=== PATIENT | female | born 1970 | race Caucasian/White ===

== ENCOUNTER 2019-01-07 12:46 | Emergency (ER) | payer OTHER ==
--- NOTE | 2019-01-07 13:30 | EDM.PDOC ---
<Gary Caballero - Last Filed: 01/07/19 15:20> ED HPI GENERAL MEDICAL PROBLEM - General Chief Complaint: Cardiovascular Problem Stated Complaint: CHEST PAIN AND HIGH BLOOD PRESSURE Time Seen by Provider: 01/07/19 13:30 - Related Data Allergies Allergy/AdvReac Type Severity Reaction Status Date / Time Penicillins Allergy Rash Verified 01/07/19 12:57 Sulfa (Sulfonamide Allergy Rash Verified 01/07/19 12:57 Antibiotics) Home Meds: Home Meds Control. 1 tab PO DAILY 01/07/19 [History] Sertraline [Zoloft] 50 mg PO DAILY 01/07/19 [History] Course - Vital Signs Last Recorded V/S: Last Vital Signs Temp 37.2 C 01/07/19 12:54 Pulse 60 01/07/19 12:54 Resp 16 01/07/19 12:54 BP 145/99 H 01/07/19 12:54 Pulse Ox 98 01/07/19 12:54 - Orders/Labs/Meds Labs: Laboratory Tests 01/07/19 01/07/19 01/07/19 Range/Units 13:56 13:56 13:56 WBC 5.63 (3.98-10.04) K/mm3 RBC 4.69 (3.98-5.22) M/mm3 Hgb 13.7 (11.2-15.7) gm/L Hct 42.3 (34.1-44.9) % MCV 90.2 (79.4-94.8) fl MCH 29.2 (25.6-32.2) pg MCHC 32.4 (32.2-35.5) g/dl RDW Std Deviation 41.6 (36.4-46.3) fL Plt Count 301 (182-369) K/mm3 MPV 10.5 (9.4-12.3) fl Neutrophils % (Manual) 56 (40-60) % Band Neutrophils % 0 (0-10) % Lymphocytes % (Manual) 39 (20-40) % Atypical Lymphs % 0 % Monocytes % (Manual) 4 (2-10) % Eosinophils % (Manual) 1 (0.7-5.8) % Basophils % (Manual) 0 L (0.1-1.2) Platelet Estimate Adequate Plt Morphology Comment Normal RBC Morph Comment Normal D-Dimer, Quantitative < 0.19 L (0.19-0.50) mg/L Sodium 140 (136-145) mEq/L Potassium 4.1 (3.5-5.1) mEq/L Chloride 107 (98-107) mEq/L Carbon Dioxide 27 (21-32) mEq/L Anion Gap 10.1 (5-15) BUN 13 (7-18) mg/dL Creatinine 0.8 (0.55-1.02) mg/dL Est Cr Clr Drug Dosing 82.26 mL/min Estimated GFR (MDRD) > 60 (>60) mL/min BUN/Creatinine Ratio 16.3 (14-18) Glucose 91 (74-106) mg/dL Calcium 9.2 (8.5-10.1) mg/dL Magnesium 2.1 (1.8-2.4) mg/dl Total Bilirubin 0.5 (0.2-1.0) mg/dL AST 21 (15-37) U/L ALT 32 (14-59) U/L Alkaline Phosphatase 44 L (46-116) U/L Troponin I 0.020 (0.00-0.056) ng/mL C-Reactive Protein < 0.2 (<1.0) mg/dL Total Protein 6.8 (6.4-8.2) g/dl Albumin 3.7 (3.4-5.0) g/dl Globulin 3.1 gm/dL Albumin/Globulin Ratio 1.2 (1-2) Free T4 1.03 (0.76-1.46) ng/dL Free T3 pg/mL (2.50-3.90) pg/mL TSH 3rd Generation 2.291 (0.358-3.74) uIU/mL 01/07/19 Range/Units 13:56 WBC (3.98-10.04) K/mm3 RBC (3.98-5.22) M/mm3 Hgb (11.2-15.7) gm/L Hct (34.1-44.9) % MCV (79.4-94.8) fl MCH (25.6-32.2) pg MCHC (32.2-35.5) g/dl RDW Std Deviation (36.4-46.3) fL Plt Count (182-369) K/mm3 MPV (9.4-12.3) fl Neutrophils % (Manual) (40-60) % Band Neutrophils % (0-10) % Lymphocytes % (Manual) (20-40) % Atypical Lymphs % % Monocytes % (Manual) (2-10) % Eosinophils % (Manual) (0.7-5.8) % Basophils % (Manual) (0.1-1.2) Platelet Estimate Plt Morphology Comment RBC Morph Comment D-Dimer, Quantitative (0.19-0.50) mg/L Sodium (136-145) mEq/L Potassium (3.5-5.1) mEq/L Chloride (98-107) mEq/L Carbon Dioxide (21-32) mEq/L Anion Gap (5-15) BUN (7-18) mg/dL Creatinine (0.55-1.02) mg/dL Est Cr Clr Drug Dosing mL/min Estimated GFR (MDRD) (>60) mL/min BUN/Creatinine Ratio (14-18) Glucose (74-106) mg/dL Calcium (8.5-10.1) mg/dL Magnesium (1.8-2.4) mg/dl Total Bilirubin (0.2-1.0) mg/dL AST (15-37) U/L ALT (14-59) U/L Alkaline Phosphatase (46-116) U/L Troponin I (0.00-0.056) ng/mL C-Reactive Protein (<1.0) mg/dL Total Protein (6.4-8.2) g/dl Albumin (3.4-5.0) g/dl Globulin gm/dL Albumin/Globulin Ratio (1-2) Free T4 (0.76-1.46) ng/dL Free T3 pg/mL 3.30 (2.50-3.90) pg/mL TSH 3rd Generation (0.358-3.74) uIU/mL - Re-Assessments/Exams Free Text/Narrative Re-Assessment/Exam: 01/07/19 15:[address] White. Her CBC and CMP look good. Her D-dimer is negative. Her troponin is negative. Her CRP is normal. Her free T4 is negative. Her TSH is normal. I will discharge her home. Departure - Departure Time of Disposition: 15:25 Disposition: Home, Self-Care 01 Condition: Good Clinical Impression: Palpitations, Atypical chest pain Instructions: Nonspecific Chest Pain, [id number], Palpitations, [id number] Referrals: PCP,Not In Area [Primary Care Provider] - Forms: ED Department Discharge Additional Instructions: Follow up with your provider to get referred to cardiology for the palpitations. Check your blood pressure periodically throughout the week. If it is consistently above 140/90 you may need to be treated. Please return if you are worse. <CindyKvng Jody - Last Filed: 01/10/19 11:53> ED HPI GENERAL MEDICAL PROBLEM - General Source of Information: Reports: Patient History Limitations: Reports: No Limitations - History of Present Illness INITIAL COMMENTS - FREE TEXT/NARRATIVE: 48-year-old female presents the ED with concerns about her blood pressure being elevated at home. She states that she gets intermittent palpitations on a daily basis and they've been shown to be PVCs on Holter monitor exam. She states that at one time she had up to 20,000 PVCs in a 24-hour period of time all unifocal. She's been having some central chest pressure discomfort off and on for the last 3 days. Mild nonspecific cough that is nonproductive. Intermittent headaches. Normally she is in good shape and runs marathons. However she broke her great toe in September and has been laid up in this regard. Toes still mending. Denies any sputum production in particular no hemoptysis. She is on oral control pill for regulation of her cycles. Plan is to take her off of this within the next 2-3 months. She is a never smoker. Onset: Other (Intermittent for the last 3 days) Onset Date: 01/05/19 Duration: Day(s):, Intermittent, Waxing/Waning Location: Reports: Head (Headache), Chest (Central chest discomfort. Essential shortness of breath as well) Quality: Reports: Ache, Pressure Severity: Mild Improves with: Reports: None Worsens with: Reports: None Context: Denies: Activity, Exercise, Lifting, Sick Contact, Trauma, Other Associated Symptoms: Reports: Chest Pain, Cough, Headaches, Shortness of Breath. 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: Other (see below) (None.) Headache Pain Score (Numeric/FACES): 2 Past Medical History Cardiovascular History: Reports: Other (See Below) Other Cardiovascular History: PVCs Psychiatric History: Reports: Depression Social & Family History - Tobacco Use Smoking Status *Q: Never Smoker Second Hand Smoke Exposure: No - Caffeine Use Caffeine Use: Reports: Coffee - Recreational Drug Use Recreational Drug Use: No ED ROS GENERAL - Review of Systems Review Of Systems: See Below Constitutional: Denies: Fever, Malaise, Weakness, Fatigue, Decreased Appetite, Weight Loss HEENT: Reports: No Symptoms Respiratory: Reports: Shortness of Breath, Cough. Denies: Wheezing, Pleuritic Chest Pain, Sputum, Hemoptysis, Other Cardiovascular: Reports: Chest Pain, Blood Pressure Problem (Central chest discomfort intermittently. Question whether she has developing hypertension. This is one of the reason she came to the hospital. On the checkups that she's done at home her blood pressure still well within normal range although a few travel above 135 and a few travel about 85 but not greater than 90). Denies: Claudication, Edema, Lightheadedness, Orthopnea Endocrine: Reports: Fatigue GI/Abdominal: Reports: No Symptoms : Reports: No Symptoms Musculoskeletal: Reports: No Symptoms, Other Skin: Reports: No Symptoms (Healing fracture right great toe) Neurological: Reports: No Symptoms Psychiatric: Reports: No Symptoms Hematologic/Lymphatic: Reports: No Symptoms Immunologic: Reports: No Symptoms ED EXAM, GENERAL - Physical Exam Exam: See Below Exam Limited By: No Limitations General Appearance: Alert, WD/WN, No Apparent Distress, Other (Vital signs are normal other than slightly elevated blood pressure 1 4599.) Eye Exam: Bilateral Eye: Normal Inspection Throat/Mouth: Normal Inspection, Normal Lips, Normal Teeth, Normal Oropharynx Head: Atraumatic, Normocephalic Neck: Normal Inspection, Supple, Non-Tender, Full Range of Motion. No: Lymphadenopathy (L), Lymphadenopathy (R), Thyromegaly Respiratory/Chest: No Respiratory Distress, Lungs Clear, Normal Breath Sounds, No Accessory Muscle Use, Chest Non-Tender Cardiovascular: Normal Peripheral Pulses, Regular Rate, Rhythm, No Edema, No Gallop, No Murmur, No Rub Peripheral Pulses: 3+: Posterior Tibial (L), Posterior Tibial (R), Dorsalis Pedis (L), Dorsalis Pedis (R) GI/Abdominal: Normal Bowel Sounds, Soft, Non-Tender, No Organomegaly, No Abnormal Bruit, No Mass, Pelvis Stable, Other (No surgical scars) Back Exam: Normal Inspection, Full Range of Motion. No: CVA Tenderness (L), CVA Tenderness (R) Extremities: Normal Inspection, Normal Range of Motion, Non-Tender, No Pedal Edema, Normal Capillary Refill Neurological: Alert, Oriented, CN II-XII Intact, Normal Cognition, Normal Gait Psychiatric: Normal Affect, Normal Mood Skin Exam: Warm, Dry, Intact, Normal Color, No Rash Course - Orders/Labs/Meds Labs: Laboratory Tests 01/07/19 01/07/19 01/07/19 Range/Units 13:56 13:56 13:56 WBC 5.63 (3.98-10.04) K/mm3 RBC 4.69 (3.98-5.22) M/mm3 Hgb 13.7 (11.2-15.7) gm/L Hct 42.3 (34.1-44.9) % MCV 90.2 (79.4-94.8) fl MCH 29.2 (25.6-32.2) pg MCHC 32.4 (32.2-35.5) g/dl RDW Std Deviation 41.6 (36.4-46.3) fL Plt Count 301 (182-369) K/mm3 MPV 10.5 (9.4-12.3) fl Neutrophils % (Manual) 56 (40-60) % Band Neutrophils % 0 (0-10) % Lymphocytes % (Manual) 39 (20-40) % Atypical Lymphs % 0 % Monocytes % (Manual) 4 (2-10) % Eosinophils % (Manual) 1 (0.7-5.8) % Basophils % (Manual) 0 L (0.1-1.2) Platelet Estimate Adequate Plt Morphology Comment Normal RBC Morph Comment Normal D-Dimer, Quantitative < 0.19 L (0.19-0.50) mg/L Sodium 140 (136-145) mEq/L Potassium 4.1 (3.5-5.1) mEq/L Chloride 107 (98-107) mEq/L Carbon Dioxide 27 (21-32) mEq/L Anion Gap 10.1 (5-15) BUN 13 (7-18) mg/dL Creatinine 0.8 (0.55-1.02) mg/dL Est Cr Clr Drug Dosing 82.26 mL/min Estimated GFR (MDRD) > 60 (>60) mL/min BUN/Creatinine Ratio 16.3 (14-18) Glucose 91 (74-106) mg/dL Calcium 9.2 (8.5-10.1) mg/dL Magnesium 2.1 (1.8-2.4) mg/dl Total Bilirubin 0.5 (0.2-1.0) mg/dL AST 21 (15-37) U/L ALT 32 (14-59) U/L Alkaline Phosphatase 44 L (46-116) U/L Troponin I 0.020 (0.00-0.056) ng/mL C-Reactive Protein < 0.2 (<1.0) mg/dL Total Protein 6.8 (6.4-8.2) g/dl Albumin 3.7 (3.4-5.0) g/dl Globulin 3.1 gm/dL Albumin/Globulin Ratio 1.2 (1-2) Free T4 1.03 (0.76-1.46) ng/dL Free T3 pg/mL (2.50-3.90) pg/mL TSH 3rd Generation 2.291 (0.358-3.74) uIU/mL 01/07/19 Range/Units 13:56 WBC (3.98-10.04) K/mm3 RBC (3.98-5.22) M/mm3 Hgb (11.2-15.7) gm/L Hct (34.1-44.9) % MCV (79.4-94.8) fl MCH (25.6-32.2) pg MCHC (32.2-35.5) g/dl RDW Std Deviation (36.4-46.3) fL Plt Count (182-369) K/mm3 MPV (9.4-12.3) fl Neutrophils % (Manual) (40-60) % Band Neutrophils % (0-10) % Lymphocytes % (Manual) (20-40) % Atypical Lymphs % % Monocytes % (Manual) (2-10) % Eosinophils % (Manual) (0.7-5.8) % Basophils % (Manual) (0.1-1.2) Platelet Estimate Plt Morphology Comment RBC Morph Comment D-Dimer, Quantitative (0.19-0.50) mg/L Sodium (136-145) mEq/L Potassium (3.5-5.1) mEq/L Chloride (98-107) mEq/L Carbon Dioxide (21-32) mEq/L Anion Gap (5-15) BUN (7-18) mg/dL Creatinine (0.55-1.02) mg/dL Est Cr Clr Drug Dosing mL/min Estimated GFR (MDRD) (>60) mL/min BUN/Creatinine Ratio (14-18) Glucose (74-106) mg/dL Calcium (8.5-10.1) mg/dL Magnesium (1.8-2.4) mg/dl Total Bilirubin (0.2-1.0) mg/dL AST (15-37) U/L ALT (14-59) U/L Alkaline Phosphatase (46-116) U/L Troponin I (0.00-0.056) ng/mL C-Reactive Protein (<1.0) mg/dL Total Protein (6.4-8.2) g/dl Albumin (3.4-5.0) g/dl Globulin gm/dL Albumin/Globulin Ratio (1-2) Free T4 (0.76-1.46) ng/dL Free T3 pg/mL 3.30 (2.50-3.90) pg/mL TSH 3rd Generation (0.358-3.74) uIU/mL - Radiology Interpretation Free Text/Narrative:: 48-year-old female presents to the ED with concerns about elevated blood pressure at home over the last few days. She has nonspecific chest pains intermittent headaches. Concern that her blood pressure was elevated at home over on when I check them they are almost all under 140 on the systolic side and all under 90 on the diastolic side. Blood pressure upon admission to the ED was 144/90. Emanation of throat neck chest abdomen is benign. Plan routine labs including thyroid function since she mentions severe palpitations on a daily basis. - Re-Assessments/Exams Free Text/Narrative Re-Assessment/Exam: 01/07/19 14:18 BP is come down to 121/80. 01/07/19 14:30 Part of the labs are back. White count is normal at 5.63 with 56 % neutrophils and no band cells reported. Hemoglobin is 13.7 with hematocrit of 42.3. Platelet count is 301,000. D-dimer is less than 0.19. Chemistry reveals a sodium of 140. Potassium 4.1. Chloride 107 with a bicarbonate of 27. Anion gap is 10.1 BUN is 13 with a creatinine of 0.8. GFR is greater than 60. Glucose is 91. Calcium is 9.2. Magnesium 2.1. Bilirubin is 0.5. Liver function normal. Troponin I was less than 0.020. C-reactive protein was less than 0.2. Total protein is 6.8 with an albumin fraction of 3.7. TSH is 2.291 normal free T3 was 3.30 in the normal range free T4 1 0.03 again normal.
--- NOTE | 2019-01-07 14:29 | CR ---
Chest: Portable view of the chest was obtained. Comparison: No prior chest x-ray. Heart size and mediastinum are normal. Lungs are clear. Bony structures are unremarkable. Impression: 1. Nothing acute is seen on portable chest x-ray. Diagnostic code #1
== END 2019-01-07 15:40 | disposition home or self-care (01) ==
LOC: JD.ED 12:46
DX: R00.2 Palpitations (principal); R07.89 Other chest pain; F32.9 Major depressive disorder, single episode, unspecified; Z79.899 Other long term (current) drug therapy; Z88.0 Allergy status to penicillin; Z88.2 Allergy status to sulfonamides
CPT/HCPCS: 36415; 71045; 71045-26; 80053; 83735; 84439; 84443; 84481; 84484; 85007; 85027; 85379; 86140; 93005; 99285-25